=== PATIENT | male | born 1965 | race Caucasian/White ===

== ENCOUNTER 2020-10-07 11:56 | Emergency (ER) | payer MEDICARE ==
[~2020-10-07] VITALS: Ht 170.2 cm; Wt 89.8 kg
[~2020-10-07 11:56] MED LIST: ASPI325T17 PO; BUME1TAB21 PO; CEFD300C37 PO; DIGO125T81 PO; DIGO125T85 PO; DOCU100C33 PO; DOFE125C PO; DOFE250C PO; DOFE500C PO; DOXY100T PO; FERR325T18 PO; FURO20TA3 PO; HYDR25TA6 PO; LISI-167 PO; LISI2.5T PO; MAGN400T26 PO; MAGNESIUM-VIT1 EACH PO; METF10007 PO; METO-95 PO; METO-99 PO; PANT40TA6 PO; POTA500T PO; PRAV40TA2 PO; SIRO0.5T3 PO; TACR0.5C2 PO; THIA100T67 PO; WARF7.5T46 PO
--- NOTE | 2020-10-07 13:44 | NUR ---
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
[2020-10-07] MEDS ORDERED: KETOROLAC 30 MG/1 ML IM ONE (14:00)
[2020-10-07 14:15] VITALS: BP 136/96
[2020-10-07] MEDS ORDERED: KETOROLAC 30 MG/1 ML ONE (14:18)
--- NOTE | 2020-10-07 14:26 | NUR ---
TASK RN: PT MEDICATED PER MAR.
== END 2020-10-07 14:33 | disposition home or self-care (01) ==
LOC: ED 14:00
DX: S20.212A Contusion of left front wall of thorax, initial encounter (principal); Z87.891 Personal history of nicotine dependence; W22.8XXA Striking against or struck by other objects, initial encounter; Y93.89 Activity, other specified; Y92.009 Unspecified place in unspecified non-institutional (private) residence as the place of occurrence of the external cause; Y99.8 Other external cause status
CPT/HCPCS: 71101; 96372; 99283; J1885